=== PATIENT | male | born 1945 | race Two or more races ===

== ENCOUNTER 2016-12-09 06:09 | Inpatient (IN) | payer OTHER, MEDICARE ==
[2016-12-09 06:09] VITALS: BMI 30.2
--- NOTE | 2016-12-09 07:46 | ED PDOC ---
Lower Extremity Pain/Injury Time Seen by Provider: 12/09/16 07:26 Chief Complaint (Nursing): Lower Extremity Problem/Injury Chief Complaint (Provider): Lower Extremity Problem/Injury History Per: Patient History/Exam Limitations: no limitations Current Symptoms Are (Timing): Still Present Severity: Mild Additional Complaint(s): 71 y/o male patient presenting to the ED with a swollen left knee. PT states he had his knee drained yesterday by Dr. Jj of [place] and Dr. Jj suggested that he come to the ED today to get his knee examined because he did not like the color of the pus. He states he had a fever on Wednesday but it is not currently present. He also states that on Wednesday his knee was stiff and he has pain when walking. PT's past medical history includes arthritis, two hip surgeries done in June of 2003 and two years ago. He also had an ankle surgery after he fractured it while playing baseball. He is currently taking Meloxicam once a day which he stats is controlling the pain. - Knee Description Of Injury: Other (swollen, red, filled with pus) Past Medical History Reviewed: Historical Data, Nursing Documentation, Vital Signs Vital Signs: Last Vital Signs Temp 98.9 F 12/09/16 06:27 Pulse 64 12/09/16 06:27 Resp 16 12/09/16 06:27 BP 158/77 H 12/09/16 06:27 Pulse Ox 99 12/09/16 06:27 - Medical History PMH: Arthritis, Hypothyroidism, Rheumatoid Arthritis Denies: Chronic Kidney Disease - Surgical History Surgical History: Appendectomy, Cholecystectomy, Tonsillectomy Other surgeries: ankle surgery from injuring it playing baseball - Family History Family History: States: No Known Family Hx - Social History Current smoker - smoking cessation education provided: No Alcohol: Social - Home Medications Home Medications: Ambulatory Orders Medication Instructions Recorded Meloxicam [Mobic] 15 mg PO DAILY 12/09/16 - Allergies Allergies/Adverse Reactions: Allergies Allergy/AdvReac Type Severity Reaction Status Date / Time No Known Allergies Allergy Verified 12/09/16 06:27 Review of Systems ROS Statement: Except As Marked, All Systems Reviewed And Found Negative Constitutional: Positive for: Fever (resolved ) Cardiovascular: Negative for: Chest Pain, Palpitations Respiratory: Negative for: Shortness of Breath Gastrointestinal: Negative for: Nausea, Vomiting, Abdominal Pain Musculoskeletal: Positive for: Leg Pain (left knee) Physical Exam - Reviewed Nursing Documentation Reviewed: Yes Vital Signs Reviewed: Yes - Physical Exam Appears: Positive for: Non-toxic, No Acute Distress Head Exam: Positive for: ATRAUMATIC, NORMAL INSPECTION, NORMOCEPHALIC Skin: Positive for: Normal Color, Warm Eye Exam: Positive for: Normal appearance, PERRL Neck: Positive for: Normal, Painless ROM, Supple Cardiovascular/Chest: Positive for: Regular Rate, Rhythm. Negative for: Murmur Respiratory: Positive for: Normal Breath Sounds. Negative for: Respiratory Distress Extremity: Positive for: Normal ROM (left hip, ankle and foot), Tenderness ( left knee (+) tenderness, redness, swelling and warmth, noted greater than right ). Negative for: Calf Tenderness, Deformity Neurologic/Psych: Positive for: Alert, Oriented. Negative for: Motor/Sensory Deficits - ECG O2 Sat by Pulse Oximetry: 99 (RA) Pulse Ox Interpretation: Normal Medical Decision Making Medical Decision Making: Time:06:55 Initial impression: Left Knee Fluid Backup and swelling Initial plan: -- EKG -- CMP -- Lact acid -- Urine dip -- CBC -- ESR -- CXR -- Knee Xray -- Blood culture Scribe Attestation: Documented by Sarah Ji training under Arlen Aly acting as a scribe for Deborah Spencer MD. Provider Scribe Attestation: All medical record entries made by the Scribe were at my direction and personally dictated by me. I have reviewed the chart and agree that the record accurately reflects my personal performance of the history, physical exam, medical decision making, and the department course for this patient. I have also personally directed, reviewed, and agree with the discharge instructions and disposition. Disposition - Clinical Impression Clinical Impression: Knee pain, left - Patient ED Disposition Is Patient to be Admitted: Yes Doctor Will See Patient In The: Hospital - Disposition Disposition: Transfer of Care Disposition Time: 08:30 Condition: FAIR - Pt Status Changed To: Hospital Disposition Of: Inpatient - Admit Certification Admit to Inpatient:: After my assessment, the patient will require hospitalization for at least two midnights. This is because of the severity of symptoms shown, intensity of services needed, and/or the medical risk in this patient being treated as an outpatient.
[2016-12-09] MEDS ORDERED: Propofol 10 mg/ml Inj (20 ML) ONE (08:18)
[2016-12-09] MEDS ORDERED: ePHEDrine 50 mg/ml Inj ONE (08:19)
[2016-12-09] MEDS ORDERED: Rocuronium 10 mg/ml (5 ml) ONE (08:19)
[2016-12-09] MEDS ORDERED: Midazolam 2 MG/2 ML VIAL ONE (08:19)
[2016-12-09] MEDS ORDERED: Succinylcholine 200 mg/10 ml Inj IV ONE (08:20)
[2016-12-09] MEDS ORDERED: MethylPREDNISolone Depo 40 mg/ml Inj ONE (08:26)
[2016-12-09] MEDS ORDERED: Morphine 1 mg/ml preservative-free Inj(Duramorph) ONE (08:26)
[2016-12-09] MEDS ORDERED: Bupivacaine 0.5% Inj(30mL) ONE (08:26)
[2016-12-09] MEDS ORDERED: Bacitracin Ointment 30 GM TUBE ONE (08:26)
[2016-12-09 08:28] LABS: BASO % 0.3 % (0.0-2.0); EOS # 0.2 K/uL (0.0-0.7); EOS % 1.4 % (0.0-4.0); HEMATOCRIT 39.1 % (35.0-51.0); LYMPH % 7.3 % (20.0-40.0); MEAN CORPUSCULAR HEMOGLOBIN 27.1 pg (27.0-31.0); MEAN CORPUSCULAR HGB CONC 32.7 g/dL (33.0-37.0); MEAN PLATELET VOLUME 8.4 fl (7.2-11.7); MONO # 1.2 K/uL (0.0-0.8); MONO % 9.4 % (0.0-10.0); NEUT # 10.7 K/uL (1.8-7.0); NEUT % 81.6 % (50.0-75.0); PLATELET COUNT 208 K/uL (130-400); RED CELL DISTRIBUTION WIDTH 16.6 % (11.5-14.5); WHITE BLOOD COUNT 13.1 K/uL (4.8-10.8)
[2016-12-09 08:38] LABS: ALB/GLOB RATIO 1.1 (1.0-2.1); ALKALINE PHOSPHATASE 77 U/L (38-126); ALT/SGPT 26 U/L (21-72); AST/SGOT 23 U/L (17-59); BILIRUBIN,TOTAL 0.5 mg/dl (0.2-1.3); BLOOD UREA NITROGEN 38 mg/dl (9-20); CARBON DIOXIDE 24 mmol/L (22-30); CHLORIDE 106 mmol/L (98-107); GFR AFRICAN-AMERICAN > 60; GLUCOSE,RANDOM 106 mg/dL (75-110); POTASSIUM 3.9 MMOL/L (3.6-5.0); SODIUM 143 mmol/l (132-148); TOTAL PROTEIN 7.9 G/DL (6.3-8.2)
[2016-12-09 09:12] LABS: PARTIAL THROMBOPLASTIN TIME 30.8 SECONDS (23.3-32.5)
--- NOTE | 2016-12-09 10:13 | CP.PCM.PCO ---
Physician Communication Note - Physician Communication Note Physician Communication Note: Patient is cleared medically for left knee arthroscopy. Please see H&P
--- NOTE | 2016-12-09 10:18 | RAD ---
HISTORY: knee pain x 1 week COMPARISON: No prior FINDINGS: BONES: Normal. No fracture. Nonspecific subchondral lucency in the medial femoral condyle possibly degenerative. JOINTS: Tricompartmental joint space narrowing and marginal spur formation SOFT TISSUE: Normal. OTHER FINDINGS: None . IMPRESSION: No fracture. Please see discussion above.
--- NOTE | 2016-12-09 10:21 | RAD ---
HISTORY: preop COMPARISON: No prior. TECHNIQUE: Chest PA and lateral FINDINGS: LUNGS: No active pulmonary disease. PLEURA: No significant pleural effusion identified. No pneumothorax apparent. CARDIOVASCULAR: Normal. OSSEOUS STRUCTURES: No significant abnormalities. VISUALIZED UPPER ABDOMEN: Normal. OTHER FINDINGS: None. IMPRESSION: No active disease.
--- NOTE | 2016-12-09 10:23 | CP.PCM.HP ---
History of Present Illness - History of Present Illness History of Present Illness: Hospitalist Admission H&P (Patient was seen and examined at 10:00 AM in the OR holding area 12/09/16 PMD: Dr. Hernandez CODE STATUS: FULL CODE. Has Living Will a copy of which is at home. Son Fritz [phone] and are designated Health Care Proxies. CHIEF COMPLAINT: Left Knee Pain 71 year old male who presents with his son Fritz for a chief complaint of Prgoressive Worsening of Left Knee Pain. Patient states that his Left Knee started to hurt him on Wednesday and on this day he also felt subjective fever. By Wednesday morning, patient states that he hardly could walk on the left leg. He therefore went to see Orthopedic Surgeon Dr. Fuchs who drained some fluid from the left knee. He presents this morning as the pain in the left knee has progressively worsened along with edema. Currently upon FULL ROS there is NO chest pain, NO palpitations, NO SOB/Cough/ Wheezing, NO dysphagia/odynophagia, NO abdominal pain, NO n/v/d/c (NO black or bloody stools), NO burning/pain with urination, NO lightheadedness/dizziness, NO headaches, NO new chagnes in vision/eye pain (left eye floater for past month for which he states he already saw an opthalmologist for), NO new changes in hearing/ear pain, NO paresthesias, (+) Edema: left knee PMHX: RA, Bilateral Cataracts, Hypothyroid PSHX: Bilateral Total Hip Replacement, Appendectomy, Cholecystectomy, Right Inguinal Hernia Repair, Tonsillectomy ALL: NKDA, NO known food allergies Medications: Meloxicam 7.5 mg PO 1x/day, Levothyroxine 25 mcg PO 1x/day Social Hx: Manager Demand, NO tobacco, NO alcohol (1 to 2 times a month a drink), NO illicit drugs Family Hx: Mom (arthiritis) Present on Admission - Present on Admission Any Indicators Present on Admission: Yes History of DVT/PE: No History of Uncontrolled Diabetes: No Urinary Catheter: No Review of Systems - Review of Systems Review of Systems: Pleas see HPI above Past Patient History - Infectious Disease Hx of Infectious Diseases: None - Tetanus Immunizations Tetanus Immunization: Unknown - Past Medical History & Family History Past Medical History?: Yes Pertinent Family History: Please see HPI above - Past Social History Alcohol: Social - CARDIAC Hx Cardiac Disorders: No - PULMONARY Hx Respiratory Disorders: No - NEUROLOGICAL Hx Neurological Disorder: No - HEENT Hx Cataracts: Yes - RENAL Hx Chronic Kidney Disease: No - ENDOCRINE/METABOLIC Hx Hypothyroidism: Yes - HEMATOLOGICAL/ONCOLOGICAL Hx Blood Disorders: No - INTEGUMENTARY Hx Dermatological Problems: No - MUSCULOSKELETAL/RHEUMATOLOGICAL Hx Arthritis: Yes Hx Rheumatoid Arthritis: Yes - GASTROINTESTINAL Hx Gastrointestinal Disorders: No - GENITOURINARY/GYNECOLOGICAL Hx Prostate Problems: Yes - PSYCHIATRIC Hx Psychophysiologic Disorder: No Hx Substance Use: No - SURGICAL HISTORY Hx Appendectomy: Yes Hx Cholecystectomy: Yes Hx Tonsillectomy: Yes - ANESTHESIA Hx Anesthesia: Yes Hx Anesthesia Reactions: No Hx Malignant Hyperthermia: No Meds Allergies/Adverse Reactions: Allergies Allergy/AdvReac Type Severity Reaction Status Date / Time No Known Allergies Allergy Verified 12/09/16 06:27 Physical Exam - Constitutional Appears: Non-toxic, No Acute Distress - Head Exam Head Exam: ATRAUMATIC, NORMAL INSPECTION, NORMOCEPHALIC - Eye Exam Eye Exam: EOMI, Normal appearance, PERRL Pupil Exam: NORMAL ACCOMODATION, PERRL - ENT Exam ENT Exam: Mucous Membranes Moist, Normal Exam, Normal External Ear Exam, Normal Oropharynx - Neck Exam Neck exam: Positive for: Normal Inspection Additional comments: NO Lymphadenopathy - Respiratory Exam Respiratory Exam: Clear to Auscultation Bilateral, NORMAL BREATHING PATTERN Additional comments: CTA B/L NO R/R/W - Cardiovascular Exam Cardiovascular Exam: REGULAR RHYTHM, +S1, +S2 Additional comments: NS1 and NS2, NO M/R/G - GI/Abdominal Exam GI & Abdominal Exam: Normal Bowel Sounds, Soft Additional comments: BSx4, Soft, NT, Central Obesity, NO HSM, NO guarding/rebound tenderness - Extremities Exam Additional comments: Pulses are strong and equal Capillary Refill is 2 seconds Left is edematuos and warm, NO erythema - Neurological Exam Neurological exam: Alert, CN II-XII Intact, Oriented x3 Results - Vital Signs Recent Vital Signs: Last Vital Signs Temp 98.9 F 12/09/16 06:27 Pulse 64 12/09/16 06:27 Resp 16 12/09/16 06:27 BP 158/77 H 12/09/16 06:27 Pulse Ox 99 12/09/16 08:30 - Labs Result Diagrams: 12/09/16 08:00 12/09/16 08:00 Labs: Laboratory Results - last 24 hr 12/09/16 08:32 PT 10.2 INR 0.98 APTT 30.8 Assessment & Plan (1) Knee pain, left Assessment and Plan: For Left Knee Arthroscopy with Dr. Fuchs EKG shows NSR at 55 bpm Chest X Ray does not show any acute disease WBC elevated at 13.1 Patient is medically cleared for procedure Status: Acute (2) Rheumatoid arthritis Assessment and Plan: Meloxicam 7.5 mg PO 1x/day Status: Chronic Priority: High (3) Hypothyroidism Assessment and Plan: Levothyroxine 25 mcg PO 1x/day Status: Chronic Priority: High (4) Prophylactic measure Assessment and Plan: Protonix 40 mg PO 1x/day DVT prophylaxis as per Orthopedics S/P procedure Status: Acute
[2016-12-09 10:25] LABS: EOSINOPHIL 2 % (0-7); NEUTROPHIL 85 % (42-75); TOTAL CELLS COUNTED 100
--- NOTE | 2016-12-09 10:38 | CARD ---
APPROVED REPORT EKG Measurement Heart [id number] <Conclusion> Sinus bradycardia with sinus arrhythmia Otherwise normal ECG
[2016-12-09] MEDS ORDERED: Lactated Ringer's 1,000 ML IV ONE ×2 (11:00→11:15)
[2016-12-09] MEDS ORDERED: Lidocaine 1% Inj (20ml) IJ ONE (11:55)
[2016-12-09] MEDS ORDERED: Neostigmine Methylsulfate 2 MG/2 ML ML IV ONE (12:08)
[2016-12-09 12:10] LABS: FLUID TYPE SYNOVIAL FLUID
--- NOTE | 2016-12-09 12:26 | PCM.SURG1 ---
Surgeon's Initial Post Op Note - Surgeon's Notes Surgeon: Maddy Front Office Director: YAYA Pfeiffer Type of Anesthesia: General Endo, Spinal, Block Regional Anesthesia Administered By: Dr Osman Pre-Operative Diagnosis: septic L knee Operative Findings: sepsis L knee (pus in joint). tear medial meniscus/tear lateral meniscus. tricompartmental osteoarthritis. tricompartmental synovitis Post-Operative Diagnosis: as above Operation Performed: arthroscope partial medial/lateral meniscectomy. arthroscopic incison/drainage and debridement. arthroscopic partial tricompartmental synovectomy Specimen/Specimens Removed: synovium/pus/cartilage Estimated Blood Loss: EBL {In ML}: 5 Blood Products Given: N/A Drains Used: No Drains Post-Op Condition: Good Date of Surgery/Procedure: 12/09/16 Time of Surgery/Procedure: 11:55 (timwe in room/anaesthesia induction time 11:00 )
[2016-12-09 13:00] LABS: ERYTHROCYTE SEDIMENTATION RATE 84 mm/hr (0-20)
[2016-12-09] MEDS: HYDROmorphone 0.5 mg/0.5 ml ISec IVP PRN ×3 (13:05→13:35)
[2016-12-09] MEDS: Lactated Ringer's 1,000 ML IV SCH ×2 (15:37→20:46)
[2016-12-09 15:54] LABS: SYNOVIAL FLUID TOTAL COUNT 100 (0-0)
--- NOTE | 2016-12-09 19:04 | CON ---
DATE: 12/09/2016 HISTORY OF PRESENT ILLNESS: The patient is a 71-year-old male who I am seeing post-arthroscopy, part ial medial and lateral meniscoscopy and arthroscopic incision, drainage and debridement. Also, an ar throscopic partial trans-compartmental synovectomy. The patient was noted to have sepsis of the left knee, tear of medial meniscus, tear lateral meniscus and trans-compartmental osteoarthritis and osuna s-compartmental synovitis. The patient also had progressive worsening of left knee pain and it start ed to hurt him. It became more severe on Wednesday when he also began to have fever and some chills. O n the next day he could hardly walk on the left leg and went to see Dr. Jj who drained some flui d from the left knee. As the pain progressively worsened he came to the ER for evaluation. From the re, he was admitted and sent to the operating room where the procedure noted above was done by Dr. Houston garcia. PAST MEDICAL HISTORY: Includes rheumatoid arthritis, cataracts and hypothyroid. He has also had burak ateral total hip replacements, appendectomy, cholecystectomy and a right inguinal hernia repair. MEDICATIONS: He is taking meloxicam 7.5 mg once a day, levothyroxine 25 mcg once a day. PHYSICAL EXAMINATION: GENERAL: He is alert and relatively cooperative, although does not want to stay in the hospital. HEENT: Within normal limits. NECK: Supple. LUNGS: Some decreased breath sounds at bases. No shortness of breath. HEART: Regular sinus rhythm. ABDOMEN: Soft, positive bowel sounds. Surgical scar is noted from already noted history. EXTREMITIES: Right leg within normal limits. Has surgical scars from bilateral hips. The left knee is bandaged and immobilized. LABORATORIES: Micro is pending. Creatinine is 1.1. GFR is greater than 60. Lactic acid 1.2. LFTs are within normal limits. White count is 13.1, hemoglobin 12.8, polys are 81.6 lymphs 7.3, eos 1.4. Sed rate is 84. Platelet count is 208. DIAGNOSIS: On this admission, septic arthritis. Awaiting for cultures taken intraoperatively. We have started the patient on vancomycin a gram q. 12 and meropenem a gram q. 12. This patient will n eed 4-6 weeks of IV antibiotic therapy considering the purulence of the operative findings and the fa ct that he has also 2 total hip replacements. Sea Velazquez MD cc: 61 TT: 12/09/2016 19:02:55 Confirmation # [id number] Dictation # [id number] mn
[2016-12-09] MEDS: Meropenem 500 MG in Sodium Chloride 0.9% 100 ML IVPB SCH (20:35)
[2016-12-10] MEDS: Lactated Ringer's 1,000 ML IV SCH ×3 (05:26→20:53)
[2016-12-10] MEDS: Meropenem 500 MG in Sodium Chloride 0.9% 100 ML IVPB SCH ×2 (06:19→17:30)
[2016-12-10] MEDS: Levothyroxine 25 MCG TAB PO SCH (06:20)
[2016-12-10 08:02] LABS: BASO % 0.3 % (0.0-2.0); EOS # 0.1 K/uL (0.0-0.7); EOS % 0.8 % (0.0-4.0); HEMATOCRIT 34.9 % (35.0-51.0); LYMPH # 0.4 K/uL (1.0-4.3); LYMPH % 4.3 % (20.0-40.0); MEAN CELL VOLUME 82.7 fl (80.0-94.0); MEAN CORPUSCULAR HEMOGLOBIN 27.5 pg (27.0-31.0); MEAN CORPUSCULAR HGB CONC 33.3 g/dL (33.0-37.0); MEAN PLATELET VOLUME 8.3 fl (7.2-11.7); MONO # 0.6 K/uL (0.0-0.8); MONO % 6.6 % (0.0-10.0); NEUT # 8.5 K/uL (1.8-7.0); RED CELL DISTRIBUTION WIDTH 16.4 % (11.5-14.5); WHITE BLOOD COUNT 9.7 K/uL (4.8-10.8)
[2016-12-10 08:19] LABS: ALB/GLOB RATIO 1.1 (1.0-2.1); ALKALINE PHOSPHATASE 73 U/L (38-126); ALT/SGPT 36 U/L (21-72); AST/SGOT 32 U/L (17-59); BILIRUBIN,TOTAL 0.7 mg/dl (0.2-1.3); BLOOD UREA NITROGEN 21 mg/dl (9-20); CALCIUM 8.6 mg/dL (8.4-10.2); CARBON DIOXIDE 26 mmol/L (22-30); CHLORIDE 105 mmol/L (98-107); GFR AFRICAN-AMERICAN > 60; GLUCOSE,RANDOM 111 mg/dL (75-110); SODIUM 141 mmol/l (132-148); TOTAL PROTEIN 6.8 G/DL (6.3-8.2)
[2016-12-10 08:22] LABS: T4 8.47 ug/dl (5.5-11.0)
[2016-12-10] MEDS: Pantoprazole 40 mg EC Tab PO SCH (08:28)
[2016-12-10 09:13] LABS: THYROID STIMULATING HORMONE 4.17 mIU/ML (0.46-4.68)
--- NOTE | 2016-12-10 11:46 | CP.PCM.PN ---
Subjective - Date & Time of Evaluation Date of Evaluation: 12/10/16 Time of Evaluation: 14:14 - Subjective Subjective: patient seen examined bedside no complaints pain controlled no cp, dyspnea or calf pain vitals are stable no acute distress patient for PICC today Objective - Vital Signs/Intake and Output Vital Signs (last 24 hours): Temp Pulse Resp BP Pulse Ox 98.4 F 64 20 181/76 H 96 12/10/16 08:36 12/10/16 08:36 12/10/16 08:36 12/10/16 08:36 12/10/16 08:36 - Medications Medications: Current Medications Hydromorphone HCl (Dilaudid) 0.5 mg IVP Q10M PRN PRN Reason: Pain, moderate (4-7) Last Admin: 12/09/16 13:35 Dose: 0.5 mg Lactated Ringer's (Lactated Ringer's) 1,000 mls @ 125 mls/hr IV .Q8H COUNT INCLUDES THE [facility] Last Admin: 12/10/16 05:26 Dose: Not Given Meropenem 500 mg/ Sodium (Chloride) 100 mls @ 100 mls/hr IVPB Q12H COUNT INCLUDES THE [facility] Last Admin: 12/10/16 06:19 Dose: 100 mls/hr Vancomycin HCl 1 gm/ Sodium (Chloride) 250 mls @ 166.667 mls/hr IVPB Q12 COUNT INCLUDES THE [facility] Last Admin: 12/10/16 08:28 Dose: 166.667 mls/hr Ketorolac Tromethamine (Toradol) 15 mg IVP Q6 PRN PRN Reason: Pain, moderate (4-7) Last Admin: 12/09/16 17:11 Dose: 15 mg Ketorolac Tromethamine (Toradol) 30 mg IVP Q6 PRN PRN Reason: Pain, severe (8-10) Levothyroxine Sodium (Synthroid) 25 mcg PO DAILY@0630 COUNT INCLUDES THE [facility] Last Admin: 12/10/16 06:20 Dose: 25 mcg Pantoprazole Sodium (Protonix Ec Tab) 40 mg PO DAILY COUNT INCLUDES THE [facility] Last Admin: 12/10/16 08:28 Dose: 40 mg - Labs Labs: 12/10/16 06:45 12/10/16 06:45 PT 10.2 SECONDS (9.6-11.2) 12/09/16 08:32 INR 0.98 (0.92-1.08) 12/09/16 08:32 APTT 30.8 SECONDS (23.3-32.5) 12/09/16 08:32 - Constitutional Appears: Non-toxic, No Acute Distress - Head Exam Head Exam: ATRAUMATIC, NORMOCEPHALIC - Eye Exam Eye Exam: EOMI, Normal appearance, PERRL - ENT Exam ENT Exam: Mucous Membranes Moist, Normal Exam - Neck Exam Neck Exam: Full ROM, Normal Inspection - Respiratory Exam Respiratory Exam: Clear to Ausculation Bilateral. absent: Rales, Wheezes - Cardiovascular Exam Cardiovascular Exam: RRR, +S1, +S2 - GI/Abdominal Exam GI & Abdominal Exam: Soft. absent: Tenderness, Mass, Organomegaly - Extremities Exam Extremities Exam: Normal Capillary Refill. absent: Calf Tenderness - Back Exam Back Exam: absent: CVA tenderness (L), CVA tenderness (R) - Neurological Exam Neurological Exam: Alert, Awake, Oriented x3 - Psychiatric Exam Psychiatric exam: Normal Affect, Normal Mood - Skin Skin Exam: Dry, Warm Assessment and Plan - Assessment and Plan (Free Text) Plan: 71 year old male who presents with his son Fritz for a chief complaint of Prgoressive Worsening of Left Knee Pain. Patient states that his Left Knee started to hurt him on Wednesday and on this day he also felt subjective fever. By Wednesday morning, patient states that he hardly could walk on the left leg. He therefore went to see Orthopedic Surgeon Dr. Fuchs who drained some fluid from the left knee. He presented in ER as the pain in the left knee has progressively worsened along with edema. He is now S/P Left Knee Arthroscopy: incision and drainage with debridement, partial medial and lateral menisectomy with Dr. Jj. Assessment & Plan (1) Knee pain, left S/P Left Knee Arthroscopy: incision and drainage with debridement, partial medial and lateral menisectomy with Dr. Jj EKG shows NSR at 55 bpm Chest X Ray does not show any acute disease WBC elevated at 13.1 For Pain: Toradol 15 mg IV Q6H PRN moderate pain and 30 mg IV Q6H PRN Severe Pain Per Dr. Velazquez: will likely need 6 weeks of IV antibiotics therefore PICC Line insertion has been ordered for today. Also started patient on Vancomycin 1 gm IV Q12H (F/U Trough prior to 4th dose) and Meropenem 1 gm IV Q12H Status: Acute (2) Rheumatoid arthritis Meloxicam 7.5 mg PO 1x/day Status: Chronic Priority: High (3) Hypothyroidism Levothyroxine 25 mcg PO 1x/day Status: Chronic Priority: High (4) Prophylactic measure Protonix 40 mg PO 1x/day DVT prophylaxis as per Orthopedics S/P procedure Status: Acute
[2016-12-10] MEDS ORDERED: Lidocaine 1% Inj (20ml) ONE (12:47)
--- NOTE | 2016-12-10 13:20 | PCM.SURG1 ---
Surgeon's Initial Post Op Note - Surgeon's Notes Surgeon: Matthew Ochoa MD Drapery Estimator: NONE Type of Anesthesia: Local Pre-Operative Diagnosis: Knee infection Operative Findings: Patent right basilic vein Post-Operative Diagnosis: Knee infection Operation Performed: Single lumen picc placement right basilic vein, 35 cm. Tip in SVC. Specimen/Specimens Removed: None Estimated Blood Loss: EBL {In ML}: 2 Blood Products Given: N/A Drains Used: No Drains Post-Op Condition: Fair Date of Surgery/Procedure: 12/10/16 Time of Surgery/Procedure: 13:05
--- NOTE | 2016-12-10 19:00 | CP.PCM.PN ---
Subjective - Date & Time of Evaluation Date of Evaluation: 12/10/16 Time of Evaluation: 18:52 - Subjective Subjective: ID NOTE CULTURES ARE NEGATIVE SO FAR IF REMAIN NEGATIVE ,WILL TREAT BASED CLINICAL/SURGICAL PICTURE EMPIRICALLY C VANCOMYCIN 1 GMIVPB Q12H CLOSELY FOLLOWING RENAL FUNCTION(INCLUDING TROUGH LEVELS) ALONG C CEFTRIAXONE 2 GM IVPB Q24H OF NOTE IS THAT PROCALCITONIN LEVEL IS ELEVATED THIS AM AT 1.46 Objective - Vital Signs/Intake and Output Vital Signs (last 24 hours): Temp Pulse Resp BP Pulse Ox 98.4 F 65 18 153/73 H 98 12/10/16 16:14 12/10/16 16:26 12/10/16 16:14 12/10/16 16:14 12/10/16 16:26 - Medications Medications: Current Medications Hydromorphone HCl (Dilaudid) 0.5 mg IVP Q10M PRN PRN Reason: Pain, moderate (4-7) Last Admin: 12/09/16 13:35 Dose: 0.5 mg Lactated Ringer's (Lactated Ringer's) 1,000 mls @ 125 mls/hr IV .Q8H [facility] Last Admin: 12/10/16 13:46 Dose: Not Given Vancomycin HCl 1 gm/ Sodium (Chloride) 250 mls @ 166.667 mls/hr IVPB Q12 [facility] Last Admin: 12/10/16 08:28 Dose: 166.667 mls/hr Ceftriaxone Sodium 2 gm/ (Sodium Chloride) 100 mls @ 100 mls/hr IVPB DAILY [facility] Ketorolac Tromethamine (Toradol) 15 mg IVP Q6 PRN PRN Reason: Pain, moderate (4-7) Last Admin: 12/09/16 17:11 Dose: 15 mg Ketorolac Tromethamine (Toradol) 30 mg IVP Q6 PRN PRN Reason: Pain, severe (8-10) Levothyroxine Sodium (Synthroid) 25 mcg PO DAILY@0630 [facility] Last Admin: 12/10/16 06:20 Dose: 25 mcg Pantoprazole Sodium (Protonix Ec Tab) 40 mg PO DAILY [facility] Last Admin: 12/10/16 08:28 Dose: 40 mg - Labs Labs: 12/10/16 06:45 12/10/16 06:45 PT 10.2 SECONDS (9.6-11.2) 12/09/16 08:32 INR 0.98 (0.92-1.08) 12/09/16 08:32 APTT 30.8 SECONDS (23.3-32.5) 12/09/16 08:32
[2016-12-11] MEDS: Lactated Ringer's 1,000 ML IV SCH ×2 (06:39→14:26)
[2016-12-11] MEDS: Levothyroxine 25 MCG TAB PO SCH (06:40)
[2016-12-11 08:47] LABS: HEMATOCRIT 33.9 % (35.0-51.0); MEAN CELL VOLUME 83.7 fl (80.0-94.0); MEAN CORPUSCULAR HEMOGLOBIN 27.1 pg (27.0-31.0); MEAN CORPUSCULAR HGB CONC 32.4 g/dL (33.0-37.0); RED CELL DISTRIBUTION WIDTH 15.9 % (11.5-14.5); WHITE BLOOD COUNT 8.1 K/uL (4.8-10.8)
[2016-12-11 08:48] LABS: BLOOD UREA NITROGEN 17 mg/dl (9-20); CALCIUM 8.7 mg/dL (8.4-10.2); CARBON DIOXIDE 28 mmol/L (22-30); CHLORIDE 106 mmol/L (98-107); GFR AFRICAN-AMERICAN > 60; GLUCOSE,RANDOM 106 mg/dL (75-110); POTASSIUM 3.8 MMOL/L (3.6-5.0); SODIUM 144 mmol/l (132-148)
[2016-12-11] MEDS ORDERED: cefTRIAXone 2 GM in Sodium Chloride 0.9% 100 ML IVPB SCH (09:00)
[2016-12-11] MEDS: Pantoprazole 40 mg EC Tab PO SCH (09:12)
[2016-12-11 09:13] VITALS: RESP 20; TEMP 98.9; O2SAT 96
--- NOTE | 2016-12-11 09:48 | CP.PCM.DIS ---
Provider - Provider Date of Admission: 12/09/16 08:30 Attending physician: Mak Justice MD Time Spent in preparation of Discharge (in minutes): 30 Hospital Course - Lab Results Lab Results: Micro Results 12/09/16 12:09 Other: Please Indicate Mycobacterial Culture - Preliminary 12/09/16 12:09 Knee - Left Gram Stain - Final 12/09/16 12:09 Knee - Left Wound Culture - Preliminary NO GROWTH AFTER 24 HOURS 12/09/16 12:09 Knee - Left Gram Stain - Final 12/09/16 12:09 Knee - Left Wound Culture - Preliminary NO GROWTH AFTER 24 HOURS 12/09/16 12:09 Knee - Left Gram Stain - Final 12/09/16 12:09 Knee - Left Wound Culture - Preliminary NO GROWTH AFTER 24 HOURS 12/09/16 12:09 Knee - Left Gram Stain - Final 12/09/16 12:09 Knee - Left Wound Culture - Preliminary NO GROWTH AFTER 24 HOURS 12/09/16 12:09 Knee - Left Gram Stain - Final 12/09/16 12:09 Knee - Left Wound Culture - Preliminary NO GROWTH AFTER 24 HOURS 12/09/16 12:09 Knee - Left Gram Stain - Final 12/09/16 12:09 Knee - Left Wound Culture - Preliminary NO GROWTH AFTER 24 HOURS 12/09/16 12:09 Knee - Left Gram Stain - Final 12/09/16 12:09 Knee - Left Wound Culture - Preliminary NO GROWTH AFTER 24 HOURS 12/09/16 12:09 Knee - Left Gram Stain - Final 12/09/16 12:09 Knee - Left Wound Culture - Preliminary NO GROWTH AFTER 24 HOURS Most Recent Lab Values WBC 8.1 K/uL (4.8-10.8) 12/11/16 08:35 RBC 4.05 Mil/uL (4.40-5.90) L 12/11/16 08:35 Hgb 11.0 g/dL (12.0-18.0) L 12/11/16 08:35 Hct 33.9 % (35.0-51.0) L 12/11/16 08:35 MCV 83.7 fl (80.0-94.0) 12/11/16 08:35 MCH 27.1 pg (27.0-31.0) 12/11/16 08:35 MCHC 32.4 g/dL (33.0-37.0) L 12/11/16 08:35 RDW 15.9 % (11.5-14.5) H 12/11/16 08:35 Plt Count 196 K/uL (130-400) 12/11/16 08:35 MPV 8.3 fl (7.2-11.7) 12/10/16 06:45 Neut % (Auto) 88.0 % (50.0-75.0) H 12/10/16 06:45 Lymph % (Auto) 4.3 % (20.0-40.0) L 12/10/16 06:45 [place] % (Auto) 6.6 % (0.0-10.0) 12/10/16 06:45 Eos % (Auto) 0.8 % (0.0-4.0) 12/10/16 06:45 Baso % (Auto) 0.3 % (0.0-2.0) 12/10/16 06:45 Neut # 8.5 K/uL (1.8-7.0) H 12/10/16 06:45 Lymph # 0.4 K/uL (1.0-4.3) L 12/10/16 06:45 [place] # 0.6 K/uL (0.0-0.8) 12/10/16 06:45 Eos # 0.1 K/uL (0.0-0.7) 12/10/16 06:45 Baso # 0.0 K/uL (0.0-0.2) 12/10/16 06:45 Neutrophils % (Manual) 85 % (42-75) H 12/09/16 08:00 Lymphocytes % (Manual) 6 % (20-50) L 12/09/16 08:00 Monocytes % (Manual) 7 % (0-10) 12/09/16 08:00 Eosinophils % (Manual) 2 % (0-7) 12/09/16 08:00 Platelet Estimate Normal (NORMAL) 12/09/16 08:00 Hypochromasia (manual) Slight 12/09/16 08:00 Anisocytosis (manual) Slight 12/09/16 08:00 ESR 82 mm/hr (0-20) H 12/10/16 06:45 PT 10.2 SECONDS (9.6-11.2) 12/09/16 08:32 INR 0.98 (0.92-1.08) 12/09/16 08:32 APTT 30.8 SECONDS (23.3-32.5) 12/09/16 08:32 Sodium 144 mmol/l (132-148) 12/11/16 08:35 Potassium 3.8 MMOL/L (3.6-5.0) 12/11/16 08:35 Chloride 106 mmol/L (98-107) 12/11/16 08:35 Carbon Dioxide 28 mmol/L (22-30) 12/11/16 08:35 Anion Gap 13 (10-20) 12/11/16 08:35 BUN 17 mg/dl (9-20) 12/11/16 08:35 Creatinine 0.9 mg/dL (0.8-1.5) 12/11/16 08:35 Est GFR ( Amer) > 60 12/11/16 08:35 Est GFR (Non-Af Amer) > 60 12/11/16 08:35 Random Glucose 106 mg/dL (75-110) 12/11/16 08:35 Lactic Acid 1.2 MMOL/L (0.7-2.1) 12/09/16 08:15 Calcium 8.7 mg/dL (8.4-10.2) 12/11/16 08:35 Total Bilirubin 0.7 mg/dl (0.2-1.3) 12/10/16 06:45 AST 32 U/L (17-59) 12/10/16 06:45 ALT 36 U/L (21-72) 12/10/16 06:45 Alkaline Phosphatase 73 U/L (38-126) 12/10/16 06:45 Total Protein 6.8 G/DL (6.3-8.2) 12/10/16 06:45 Albumin 3.6 g/dL (3.5-5.0) 12/10/16 06:45 Globulin 3.2 gm/dL (2.2-3.9) 12/10/16 06:45 Albumin/Globulin Ratio 1.1 (1.0-2.1) 12/10/16 06:45 Procalcitonin 1.46 NG/ML (0.19-0.49) H 12/10/16 06:45 Thyroxine (T4) 8.47 ug/dl (5.5-11.0) 12/10/16 06:45 TSH 3rd Generation 4.17 mIU/ML (0.46-4.68) 12/10/16 06:45 Fluid Type Synovial fluid 12/09/16 12:09 Synovial WBC 03368.0 /mm3 (0.0-150.0) H 12/09/16 12:09 Synovial RBC 53781.0 /mm3 (0.0-0.0) H 12/09/16 12:09 Synovial Neutrophils 95.0 % (0-0) H 12/09/16 12:09 Synovial Lymphocytes 4.0 % (0-0) H 12/09/16 12:09 Synov Monos/Macrophage 1 % (0-0) H 12/09/16 12:09 Synovial Fluid Comment Pale yellow 12/09/16 12:09 Vancomycin Trough 12.9 ug/mL (5.0-10.0) H 12/11/16 08:35 - Hospital Course Hospital Course: 71 year old male who presents with his son Fritz for a chief complaint of Prgoressive Worsening of Left Knee Pain. Patient states that his Left Knee started to hurt him on Wednesday and on this day he also felt subjective fever. By Wednesday morning, patient states that he hardly could walk on the left leg. He therefore went to see Orthopedic Surgeon Dr. Fuchs who drained some fluid from the left knee. He presented in ER as the pain in the left knee has progressively worsened along with edema. He is now S/P Left Knee Arthroscopy: incision and drainage with debridement, partial medial and lateral menisectomy with Dr. Jj. Patient stable to be discharged, to be placed on home IV antibiotics VANCOMYCIN 1 G Q12 AND CEFTRIAXONE 2 G QD Assessment & Plan (1) Knee pain, left S/P Left Knee Arthroscopy: incision and drainage with debridement, partial medial and lateral menisectomy with Dr. Jj EKG shows NSR at 55 bpm Chest X Ray does not show any acute disease WBC elevated at 13.1 For Pain: Toradol 15 mg IV Q6H PRN moderate pain and 30 mg IV Q6H PRN Severe Pain Per Dr. Velazquez: will likely need 6 weeks of IV antibiotics therefore PICC Line insertion has been ordered for today. Also started patient on Vancomycin 1 gm IV Q12H (F/U Trough prior to 4th dose) and Meropenem 1 gm IV Q12H Status: Acute (2) Rheumatoid arthritis Meloxicam 7.5 mg PO 1x/day Status: Chronic Priority: High (3) Hypothyroidism Levothyroxine 25 mcg PO 1x/day Status: Chronic Priority: High (4) Prophylactic measure Protonix 40 mg PO 1x/day DVT prophylaxis as per Orthopedics S/P procedure Status: Acute Discharge Exam - Head Exam Head Exam: ATRAUMATIC, NORMOCEPHALIC - Eye Exam Eye Exam: EOMI, Normal appearance Pupil Exam: NORMAL ACCOMODATION - ENT Exam ENT Exam: Mucous Membranes Moist, Normal Oropharynx - Respiratory Exam Respiratory Exam: Clear to PA & Lateral, NORMAL BREATHING PATTERN - Cardiovascular Exam Cardiovascular Exam: RRR, +S1, +S2 - GI/Abdominal Exam GI & Abdominal Exam: Normal Bowel Sounds, Soft, Unremarkable. absent: Mass, Organomegaly - Extremities Exam Extremities exam: normal capillary refill, pedal pulses present - Back Exam Back exam: absent: CVA tenderness (L), CVA tenderness (R) - Neurological Exam Neurological exam: Alert, Oriented x3 - Psychiatric Exam Psychiatric exam: Normal Affect, Normal Mood - Skin Skin Exam: Dry, Warm Discharge Plan - Discharge Medications Prescriptions: Ceftriaxone Sodium [Ceftriaxone] 2 gm IV DAILY #42 vial.port Vancomycin/0.9 % Sod Chloride [Vanco 1 Gram/250 ml-0.9% NaCl] 1 gm IV Q12 #84 plast..bag - Follow Up Plan Condition: FAIR Disposition: HOME/ ROUTINE Instructions: Operative Knee Arthroscopy (DC), Preventing Infections (GEN), Incision and Drainage (DC) Referrals: Hawk Jj III, MD [Staff Provider] - Sea Velazquez MD [Medical Doctor] -
--- NOTE | 2016-12-11 10:48 | OP ---
PROCEDURE DATE: 12/09/2016 PREOPERATIVE DIAGNOSIS: Septic left knee. POSTOPERATIVE DIAGNOSES: 1. Septic left knee. 2. Tricompartmental florid synovitis. 3. Tear medial meniscus, tear lateral meniscus. 4. Tricompartmental osteoarthritis. PROCEDURES: 1. Surgical arthroscopy, partial medial meniscectomy, partial lateral meniscectomy. 2. Surgical arthroscopy, partial tricompartmental synovectomy. 3. Surgical arthroscopy, irrigation and debridement/incision and drainage for sepsis. SURGEON: Hawk Jj MD LACE FINISHER: Amira Coughlin, Certified Registered Nursing [employer] Waitress/Waiter. ANESTHESIA: General endotracheal anesthesia with spinal block, Dr. Osman. COMPLICATIONS: None. DRAINS: None. BLOOD LOSS: Approximately 30 mL. OPERATIVE INDICATION: The patient is a patient well known to my practice, who presents with severe p ain and restricted range of motion of the left knee. The patient is well known to my practice, has h ad bilateral total hip replacement, arthroplasties and presents with fever and shaking chills. The p atient was instructed to go to the Emergency Room at [facility] with admitting diagnosis and working diagnosis of septic left knee and osteoarthritis of the left knee. Pros, cons , risks and benefits of surgical approach, irrigation and debridement were discussed. The possibilit y of later second open arthrotomy is discussed with possibility of mechanical failure, infection, thr omboembolic disease, secondary or tertiary surgery is discussed. The patient can no longer stand the discomfort and wishes the surgery to be accomplished. OPERATIVE PROCEDURE: After having obtained informed consent, after having identified side, site and procedure and a critical pause/timeout, after the satisfactory induction of the anesthetic, again aft er obtaining informed consent, and the vagaries of later secondary or even tertiary surgery is discus sed. The possibility of later knee replacement is discussed. The patient identified, in the supine position with all bony prominences well padded, the left lower extremity was prepped and free draped in the usual fashion for lower extremity surgery. The tourniquet had been applied, but is not yet in flated. The knee freitas is employed. After having identified side, site and procedure and a critica l pause/timeout, after sterilely prepping and draping, the left knee was injected with a solution of lidocaine without epinephrine. An anterolateral approach is accomplished using a #11 blade, followed by spreading, followed by introduction of blunt trocar. With the arthroscope introduced, there was found to be an immediate egress of purulent fluid. Pus was expressed and is obtained. This having b een accomplished, this was sent for stat Gram stain, number of white cells per high power field, aero bic, anaerobic, AFB and fungal cultures. Triangulation is accomplished using #18 gauge spinal needle , followed by #11 blade, followed by spreading, followed by introduction of blunt trocar. With the a rthroscope anterolaterally, a careful partial tricompartmental synovectomy is accomplished both to im prove visualization and to ablate irritative tissue. With the arthroscope anterolaterally, again a c areful partial tricompartmental synovectomy is completed. There was found to be complete eburnation of cartilage to bone with tricompartmental synovitis. With the arthroscope anterolaterally, with the surgeon exerting a gentle valgus stress to expose the medial compartment, there was found to be a te ar of the medial meniscal remnant. A partial medial meniscectomy is accomplished. The arthroscope w as transferred anteromedially and the inner free edge is smoothed using the Arthrocare wand. Using a combination of the straight biting basket forceps and the side-biting basket forceps, using the arth roscopic shaver, a partial medial meniscectomy is accomplished. The arthroscope was moved again ante rolaterally and with the knee in [id number] position, the lateral compartment was exposed to susu bowman. There was found to be a tear of the inner free edge of the lateral meniscus. Using a combina tion of the straight biting basket forceps and side biting basket forceps, a partial lateral meniscec jeffy was accomplished. Partial tricompartmental synovectomy is completed again. The incision and dr davis, irrigation and debridement was accomplished. All loose particulate matter was removed using the arthroscopic shaver. Tricompartmental synovectomy was completed. Bleeding points controlled wit h the [employer] surface wand. After having accomplished medial and lateral meniscectomies arthroscopic ally, partial tricompartmental synovectomy and debridement, incision and drainage, the wound was thor oughly irrigated with much antibiotic impregnated solution. Closure is in layers with interrupted Vi cryl and nylon. Ozzie Troy compression dressing is applied. Stat Gram stain reveals evidence of 2 0 white cells per high power field and even to the gross naked eye, the knee is septic. The patient will be admitted for IV antibiotics and Dr. Velazquez is called on consult and the case is discussed with him. Hawk Jj MD cc: [id number] TT: 12/11/2016 10:48:02 rn
--- NOTE | 2016-12-11 11:30 | VASCULAR ---
PROCEDURE: Date of procedure: 12/10/2016 Procedure: 1. Placement of a right arm PICC with ultrasound and fluoroscopic guidance, CPT 06209 2. PICC tip confirmation with spot radiograph and is in the superior vena cava Medications: 3cc 1 percent lidocaine Total Fluoro time: 4.4 seconds Radiation: 0.56 mGy EBL: 2 cc HISTORY: Infection requiring long-term IV antibiotics TECHNIQUE: Following informed consent and procedure time-out, the patient was placed supine on the interventional table and the right arm prepped and draped in the usual sterile fashion. Ultrasound showed a patent and compressible right basilic vein. After the skin was anesthetized with lidocaine, the basilic vein was accessed with micro micropuncture technique using ultrasound guidance. A guidewire was then advanced under fluoroscopic guidance into the superior vena cava. An image documenting ultrasound guidance for vascular access was permanently saved. The length of the single-lumen 4 [place] PICC was trimmed to 35 centimeters and advanced through a peel-away sheath. The PICC was position with tip of PICC confirm a spot radiograph the superior vena cava. The PICC was secured to the patient's skin. The PICC was flushed. A biopatch and sterile dressing was applied. IMPRESSION: Placement of a single-lumen 4 Icelandic PICC trimmed to 35 centimeters via right basilic vein. The tip of the PICC is confirmed with spot radiograph and is in the superior vena cava.
[2016-12-11 14:17] VITALS: BP 149/92; PULSE 82
== END 2016-12-11 14:51 | disposition home health service (06) | DRG 470 ==
LOC: H.ER 06:09 → H.ERHOLD 08:30 → H.MEDSURG1 14:47
PROVIDERS: ADMIT Hospitalist; ATTEND Hospitalist
PROC: 0SRD0JZ Replacement of Left Knee Joint with Synthetic Substitute, Open Approach (ICD-10-PCS; 2016-12-09)
PROC: 02HV33Z Insertion of Infusion Device into Superior Vena Cava, Percutaneous Approach (ICD-10-PCS; 2016-12-09)
PROC: B518ZZA Fluoroscopy of Superior Vena Cava, Guidance (ICD-10-PCS; 2016-12-09)
PROC: B548ZZA Ultrasonography of Superior Vena Cava, Guidance (ICD-10-PCS; 2016-12-09)
PROC: 0SBD4ZZ Excision of Left Knee Joint, Percutaneous Endoscopic Approach (ICD-10-PCS; principal; 2016-12-09 10:15)
DX: M00.9 Pyogenic arthritis, unspecified (principal); M06.9 Rheumatoid arthritis, unspecified; M17.12 Unilateral primary osteoarthritis, left knee; E03.9 Hypothyroidism, unspecified; M65.9 Synovitis and tenosynovitis, unspecified; Z90.49 Acquired absence of other specified parts of digestive tract; Z96.643 Presence of artificial hip joint, bilateral; Z98.890 Other specified postprocedural states